=== PATIENT | female | born 1950 | race Caucasian/White ===

== ENCOUNTER → 2017-03-17 | Outpatient (CLI) | payer OTHER | LOC: FIMAGING 15:41 | PROVIDERS: ATTEND Family Medicine | DX: Z12.31 Encounter for screening mammogram for malignant neoplasm of breast (principal); Z80.3 Family history of malignant neoplasm of breast | CPT/HCPCS: G0202 ==

== ENCOUNTER → 2017-03-25 | Outpatient (CLI) | payer OTHER | LOC: FIMAGING 09:29 | PROVIDERS: ATTEND Family Medicine | DX: R92.8 Other abnormal and inconclusive findings on diagnostic imaging of breast (principal) ==

== ENCOUNTER 2017-04-19 19:24 | Emergency (ER) | payer OTHER ==
--- NOTE | 2017-04-19 19:42 | EDPHY ---
HPI/HX/ROS/PE/MDM Narrative: CHIEF COMPLAINT: Abdominal pain HPI: The patient is a 66 y/o female arriving with her friend complaining of recurrent abdominal pain after eating for the last several weeks that became more severe and constant over the last 24 hours. She describes bloating and pain whenever she eats regardless of quantity or what she is eating. Her pain is localized more in her LUQ and can be both sharp and dull in quality. She says , "I wince when it happens." Her pain usually resolves in a few hours. Last night after eating dinner she developed the same pain, but it was much more severe and though it faded slightly it was still present in the morning. She currently feels like "there's something blocking it." She has had normal bowel movements. She uses a heating pad and breathing exercises for pain with some alleviation. She denies dysuria, fever, vomiting, diarrhea, recent cough, recent trauma, and excessive NSAID use recently. REVIEW OF SYSTEMS: Aside from elements discussed in the HPI, a comprehensive 10-point review of systems was reviewed and is negative. PMH: Hernia repair 11/2015 - Dr. Olivarez; has used proton pump inhibitors SOCIAL HISTORY: Friend at bedside. Lives in [place]. Employed. PCP: Dr. Ellis PHYSICAL EXAM: General:Patient is alert, in no acute distress. ENT:Eyes are normal to inspection. ENT inspection normal. Neck: Normal inspection. Full range of motion. Respiratory:No respiratory distress. Breath sounds normal bilaterally. Cardiovascular: Regular rate and rhythm. Strong peripheral pulses. Normal cap refill. Abdomen:The abdomen is nontender to palpation. There are no peritoneal signs. There are normal bowel sounds. Back: Normal to inspection. No tenderness to palpation. Skin: Normal color. No rash. Warm and dry. Extremities: Normal appearance. Full range of motion. Neuro: Oriented x3. Normal motor function. Normal sensory function. ED Course: This is a 66 y/o female who presents with a several week history of intermittent LUQ abdominal pain after eating that worsened acutely over the last 24 hours and is still present. Her abdomen is benign on exam. Plan for IV, UA, and labs. Patient declined pain and nausea medication. Abdominal CT: left renal cyst and calcified uterine fibroids. Reassessed patient and discussed work up. Labs are normal. Her abdominal CT shows a large left renal cyst, which could be the source of her pain. I've recommended follow up with urology for this as well as GI. If pain is not from renal cyst, it could be secondary to gastritis or possible ulcer, especially given association of pain with eating. She will restart her proton pump inhibitors. She declines pain medication again. Standard follow up and return precautions given. She is comfortable with plan for discharge. - Data Points Imaging Results: Imaging Impressions Abdomen CT 04/19/17 20:43 Impression: 1. Findings consistent with pelvic congestion syndrome. If this would account for the patient's symptomatology, consideration could be given to embolization performed by the Interventional Radiologist. 2. Negative for diverticulosis or diverticulitis. 3. See above report for additional findings. Results called and discussed with Bigg Senior M.D., on April 19, 2017 at 2208. Imaging: Discussed imaging studies w/ real estate closing coordinator Radiologist, I viewed and interpreted images myself Laboratory Results: Laboratory Results 04/19/17 20:12 04/19/17 20:12 04/19/17 04/19/17 04/19/17 22:02 20:12 20:12 WBC 7.20 10^3/uL 10^3/uL (3.80-9.50) RBC 4.56 10^6/uL 10^6/uL (4.18-5.33) Hgb 14.7 g/dL g/dL (12.6-16.3) Hct 43.5 % % (38.0-47.0) MCV 95.4 fL fL (81.5-99.8) MCH 32.2 pg pg (27.9-34.1) MCHC 33.8 g/dL g/dL (32.4-36.7) RDW 12.4 % % (11.5-15.2) Plt Count 236 10^3/uL 10^3/uL (150-400) MPV 9.6 fL fL (8.7-11.7) Neut % (Auto) 57.5 % % (39.3-74.2) Lymph % (Auto) 31.1 % % (15.0-45.0) [place] % (Auto) 5.8 % % (4.5-13.0) Eos % (Auto) 4.9 % % (0.6-7.6) Baso % (Auto) 0.4 % % (0.3-1.7) Nucleat RBC Rel Count 0.0 % % (0.0-0.2) Absolute Neuts (auto) 4.14 10^3/uL 10^3/uL (1.70-6.50) Absolute Lymphs (auto) 2.24 10^3/uL 10^3/uL (1.00-3.00) Absolute Monos (auto) 0.42 10^3/uL 10^3/uL (0.30-0.80) Absolute Eos (auto) 0.35 10^3/uL 10^3/uL (0.03-0.40) Absolute Basos (auto) 0.03 10^3/uL 10^3/uL (0.02-0.10) Absolute Nucleated RBC 0.00 10^3/uL 10^3/uL (0-0.01) Immature Gran % 0.3 % % (0.0-1.1) Immature Gran # 0.02 10^3/uL 10^3/uL (0.00-0.10) Sodium 142 mEq/L mEq/L (134-144) Potassium 3.3 mEq/L L mEq/L (3.5-5.2) Chloride 101 mEq/L mEq/L (97-110) Carbon Dioxide 28 mEq/l mEq/l (22-31) Anion Gap 13 mEq/L mEq/L (8-16) BUN 13 mg/dL mg/dL (7-23) Creatinine 0.8 mg/dL mg/dL (0.6-1.0) Estimated GFR > 60 Glucose 100 mg/dL mg/dL (70-100) Calcium 9.9 mg/dL mg/dL (8.5-10.4) Total Bilirubin 0.3 mg/dL mg/dL (0.1-1.4) Conjugated Bilirubin 0.1 mg/dL mg/dL (0.0-0.5) Unconjugated Bilirubin 0.2 mg/dL mg/dL (0.0-1.1) AST 27 IU/L IU/L (14-46) ALT 38 IU/L IU/L (9-52) Alkaline Phosphatase 80 IU/L IU/L (38-126) Total Protein 7.4 g/dL g/dL (6.3-8.2) Albumin 4.6 g/dL g/dL (3.5-5.0) Lipase 164 IU/L IU/L (23-300) Urine Color COLORLESS Urine Appearance CLEAR Urine pH 7.0 (5.0-7.5) Ur Specific [place] > 1.035 H (1.002-1.030) Urine Protein NEGATIVE (NEGATIVE) Urine Ketones NEGATIVE (NEGATIVE) Urine Blood 1+ H (NEGATIVE) Urine Nitrate NEGATIVE (NEGATIVE) Urine Bilirubin NEGATIVE (NEGATIVE) Urine Urobilinogen NEGATIVE EU EU (0.2-1.0) Ur Leukocyte Esterase NEGATIVE (NEGATIVE) Urine RBC 1-3 /hpf /hpf (0-3) Urine WBC 1-3 /hpf /hpf (0-3) Ur Epithelial Cells TRACE /lpf /lpf (NONE-1+) Urine Glucose NEGATIVE (NEGATIVE) General Time Seen by Provider: 04/19/17 19:28 Initial Vital Signs: Initial Vital Signs Temperature (C) 36.7 C 04/19/17 19:27 Heart Rate 72 04/19/17 19:27 Respiratory Rate 16 04/19/17 19:27 Blood Pressure 182/99 H 04/19/17 19:27 O2 Sat (%) 97 04/19/17 19:27 O2 Delivery Mode Room Air Allergies/Adverse Reactions: Penicillins Allergy (Verified 04/19/17 19:26) Home Medications: Medication Instructions Recorded Hydrochlorothiazide [HCTZ (*)] 07/27/13 Pantoprazole Sodium [Protonix 40mg 40 mg PO DAILY #20 tab 04/19/17 (*)] Departure - Departure Disposition: Home, Routine, Self-Care Clinical Impression: Renal cyst, left, Abdominal pain Condition: Good Instructions: Abdominal Pain (ED), Kidney Cyst (ED) Additional Instructions: 1. Restart proton pump inhibitors. 2. Follow up with urologist for further evaluation of renal cyst. You've been referred to Dr. Valdez. 3. Follow up with ornament maker hand this week. You've been referred to Dr. Person. 4. Return to the ED for any worsening of condition. Referrals: Sylvester Valdez MD [Medical Doctor] - As per Instructions Inge Ellis MD [Primary Care Provider] - As per Instructions Deric Person MD [Medical Doctor] - As per Instructions Prescriptions: Pantoprazole Sodium [Protonix 40mg (*)] 40 mg PO DAILY #20 tab Report Scribed for: Bigg Senior Report Scribed by: Hannah Brothers Date of Report: 04/19/17 Time of Report: 19:42 Physician Review and Approval Statement: Portions of this note were transcribed by an ED scribe. I personally performed the history, physical exam, and medical decision making; and confirm the accuracy of the information in the transcribed note.
[2017-04-19 20:20] LABS: % IMMATURE GRANULYOCYTES 0.3 % (0.0-1.1); ABSOLUTE IMMATURE GRANULOCYTES 0.02 10^3/uL (0.00-0.10); ADD DIFF? NO; ADD MORPH? NO; ADD SCAN? NO; ATYPICAL LYMPHOCYTE FLAG 0 (0-99); FRAGMENT RBC FLAG 0 (0-99); HEMATOCRIT 43.5 % (38.0-47.0); HEMOGLOBIN 14.7 g/dL (12.6-16.3); LEFT SHIFT FLG 0 (0-99); LIPEMIA HEMOLYSIS FLAG 90 (0-99); MEAN CELL HEMOGLOBIN 32.2 pg (27.9-34.1); MEAN CELL HEMOGLOBIN CONCENTR. 33.8 g/dL (32.4-36.7); MEAN CELL VOLUME 95.4 fL (81.5-99.8); MEAN PLATELET VOLUME 9.6 fL (8.7-11.7); PLATELET CLUMPS FLAG 0 (0-99); PLATELET COUNT 236 10^3/uL (150-400); RED BLOOD CELL COUNT 4.56 10^6/uL (4.18-5.33); RED CELL DISTRIBUTION WIDTH 12.4 % (11.5-15.2)
[2017-04-19 20:33] LABS: ALANINE AMINOTRANSFERASE 38 IU/L (9-52); ALBUMIN 4.6 g/dL (3.5-5.0); ALKALINE PHOSPHATASE 80 IU/L (38-126); ANION GAP 13 mEq/L (8-16); ASPARTATE AMINOTRANSFERASE 27 IU/L (14-46); BILIRUBIN,TOTAL 0.3 mg/dL (0.1-1.4); BILIRUBIN-CONJUGATED 0.1 mg/dL (0.0-0.5); BILIRUBIN-UNCONJUGATED 0.2 mg/dL (0.0-1.1); CALCIUM 9.9 mg/dL (8.5-10.4); CARBON DIOXIDE 28 mEq/l (22-31); CHLORIDE 101 mEq/L (97-110); CREATININE 0.8 mg/dL (0.6-1.0); GLOMERULAR FILTRATION RATE > 60; GLUCOSE 100 mg/dL (70-100); POTASSIUM 3.3 mEq/L (3.5-5.2); SODIUM 142 mEq/L (134-144); TOTAL PROTEIN 7.4 g/dL (6.3-8.2)
[2017-04-19] MEDS ORDERED: IOPAMIDOL (ISOVUE-300) 100 ML BTL ONE (20:51)
[2017-04-19 22:13] LABS: COLOR COLORLESS; LEUKOCYTE ESTERASE,URINE NEGATIVE (NEGATIVE); NITRITE,URINE NEGATIVE (NEGATIVE)
[2017-04-19 22:46] VITALS: BP 169/90; PULSE 71; RESP 18; TEMP 97.5; O2SAT 95
== END 2017-04-19 22:45 | disposition home or self-care (01) ==
DX: N28.1 Cyst of kidney, acquired (principal)
CPT/HCPCS: 74177; 99285; Q9967

== ENCOUNTER → 2017-09-27 | Outpatient (CLI) | payer OTHER | LOC: FIMAGING 10:46 | PROVIDERS: ATTEND Family Medicine | DX: N63.12 Unspecified lump in the right breast, upper inner quadrant (principal) ==

== ENCOUNTER → 2018-03-31 | Outpatient (CLI) | payer OTHER | LOC: FIMAGING 10:56 | PROVIDERS: ATTEND Family Medicine | DX: R92.8 Other abnormal and inconclusive findings on diagnostic imaging of breast (principal) ==

== ENCOUNTER → 2018-06-22 | Outpatient (CLI) | payer OTHER | LOC: FIMAGING 13:13 | PROVIDERS: ATTEND Family Medicine | DX: Z12.31 Encounter for screening mammogram for malignant neoplasm of breast (principal); Z80.3 Family history of malignant neoplasm of breast ==

== ENCOUNTER → 2018-08-17 | Outpatient (CLI) | payer OTHER | PROVIDERS: ATTEND Physician Assistant | DX: R13.10 Dysphagia, unspecified (principal) | CPT/HCPCS: 92611-GN ==